=== PATIENT | male | born 1955 | race Caucasian/White ===

== ENCOUNTER → 2024-01-13 09:52 | Outpatient (CLI) | payer BC, SELFPAY ==
--- NOTE | 2024-01-13 09:53 | DI.RAD_ITS ---
Exam(s) XR CHEST 2V PA LATERAL EXAM: XR CHEST 2V PA LATERAL CLINICAL HISTORY: R06.00 dyspnea TECHNIQUE: 2D digital imaging was performed of the chest. Two images were obtained. PA and lateral views were obtained. COMPARISON: No exams were available for comparison FINDINGS: MEDIASTINUM: Normal. HEART: Normal. PULMONARY VASCULATURE: Normal. LUNGS: Clear. PLEURAL SPACE: No pleural effusion or pneumothorax. BONE:Within normal limits for the patient's age. OTHER FINDINGS:Normal. IMPRESSION: No acute pulmonary findings. DATA REPOSITORY: RADIATION DOSE DELIVERED:
== END ==
PROVIDERS: PCP Nurse Practitioner Family; Visit Provider Physician Assistant Surgical
DX: R06.00 Dyspnea, unspecified (principal)
CPT/HCPCS: 71046

== ENCOUNTER 2024-01-13 10:03 | Outpatient (REF) | payer BC, SELFPAY ==
[2024-01-13 11:59] LABS: Abs Immature Grans 0.02 10^3/uL (0.0-0.06); Absolute Eosinophil Count 0.56 10^3/uL (0.0-0.7); Absolute Lymphocyte Count 0.94 10^3/uL (1.2-3.4); Absolute Monocyte Count 0.56 10^3/uL (0.1-0.8); Absolute Neutrophil Count 4.41 10^3/uL (1.2-6.7); Basophils % 1.5; Eosinophils % 8.5; HCT 49.8 % (40.0-50.0); HGB 16.5 g/dL (13.5-17.5); Immature Grans % 0.3; Lymphocytes % 14.3; MCH 31.7 pg (27.0-33.0); MCHC 33.1 % (32.0-36.0); MCV 96 fL (80-95); Monocytes % 8.5; Neutrophils % 66.9; Platelet Count 219 10^3/uL (130-400); RDW-SD 42.5 fL; WBC 6.59 10^3/uL (4.4-10.8)
[2024-01-14 11:55] LABS: IgE 916 IU/mL (<158)
== END 2024-01-13 10:04 | disposition home or self-care (01) ==
LOC: LBN 10:03
PROVIDERS: PCP Nurse Practitioner Family; Visit Provider Physician Assistant Surgical
DX: R06.09 Other forms of dyspnea (principal)
CPT/HCPCS: 82785; 85025

== ENCOUNTER 2024-01-26 05:40 | Outpatient (CLI) | payer BC, SELFPAY ==
[2024-01-26] MEDS: Inhaler, Assist Device 1 EACH MC (17:04)
[2024-01-26] MEDS: Levalbuterol HFA 15 GM INH 4 PUFF IH (17:04)
--- NOTE | 2024-01-27 09:50 | W.PFT ---
Date of service: 01/26/24 Time of Service: 15:38 Pulmonary Function Test Result Indications: Dyspnea on exertion Interpretation Spirometry: There is moderate airflow limitation. Significant bronchodilator response. Lung Volumes: Hyperinflation and air trapping present Diffusion Capacity: Normal diffusion Airway Pressure: Increased airways resistance Impression Moderate airflow obstruction with a bronchodilator response, increased resistance and a normal diffusion. This may represent uncontrolled asthma with airway remodelling or asthma-COPD overlap syndrome. Clinical Correlation therefore is recommended.
== END 2024-01-26 05:41 | disposition home or self-care (01) ==
LOC: RT 05:40
PROVIDERS: PCP Nurse Practitioner Family; Visit Provider Physician Assistant Surgical
DX: R06.00 Dyspnea, unspecified (principal)
CPT/HCPCS: 94060; 94726; 94729